=== PATIENT | male | born 1990 | race Caucasian/White ===

== ENCOUNTER 2017-11-08 09:05 | Emergency (ER) | payer SELFPAY ==
--- NOTE | 2017-11-08 10:21 | ED ---
Throat Pain/Nasal Congestion - HPI Summary HPI Summary: 27 now presents ED with complaints of right lower dental pain ongoing for the past couple weeks, however has been getting worse over the past few days. States he just doesn't feel good. Pain radiating into her right jaw. Denies any known fever chills. Has been taking someone else's Augmentin for the past 4 days along with Tylenol without relief. Just got dental insurance and plans on making an appointment. Denies any discharge or drainage. Denies any trouble breathing or swallowing. No obvious swelling or redness. Does have a fractured tooth and multiple dental caries. No other complaints and no past medical history. - History of Current Complaint Chief Complaint: EDDentalPain Time Seen by Provider: 11/08/17 09:46 Hx Obtained From: Patient Onset/Duration: Sudden Onset, Lasting Weeks, Still Present, Worse Since Severity: Moderate Associated Signs And Symptoms: Positive: Negative Cough: None - Allergies/Home Medications Allergies/Adverse Reactions: Allergies Allergy/AdvReac Type Severity Reaction Status Date / Time CODEINE Allergy Intermediate Difficulty Uncoded 11/08/17 09:30 Breathing Home Medications: Home Medications Amoxicillin PO (*) [Amoxicillin 500 MG CAP*] 500 mg PO BID 11/08/17 [History Confirmed 11/08/17] PMH/Surg Hx/FS Hx/Imm Hx Endocrine/Hematology History: Denies: Hx Anticoagulant Therapy, Hx Diabetes Cardiovascular History: Denies: Hx Hypertension Respiratory History: Denies: Hx Asthma - Surgical History Surgery Procedure, Year, and Place: n/a - Immunization History Immunizations Up to Date: Yes Infectious Disease History: No Infectious Disease History: Denies: Traveled Outside the [place] in Last 30 Days - Family History Known Family History: Positive: None - Social History Alcohol Use: None Substance Use Type: Reports: Marijuana Substance Use Comment - Amount & Last Used: 1 bowl daily Smoking Status (MU): Heavy Every Day Tobacco Smoker Review of Systems Constitutional: Negative Eyes: Negative Positive: Dental Pain Cardiovascular: Negative Respiratory: Negative Skin: Negative Positive: Headache All Other Systems Reviewed And Are Negative: Yes Physical Exam Triage Information Reviewed: Yes Vital Signs On Initial Exam: Initial Vitals Temp Pulse Resp BP Pulse Ox 98.2 F 70 16 149/82 97 11/08/17 09:39 11/08/17 09:39 11/08/17 09:39 11/08/17 09:39 11/08/17 09:39 Vital Signs Reviewed: Yes Appearance: Positive: Well-Appearing, Well-Nourished, Pain Distress - Mild Skin: Positive: Warm, Skin Color Reflects Adequate Perfusion, Dry, Other - No swelling or erythema appreciated. Negative: Cold, Numb, Cyanosis @, Erythema @ Head/Face: Positive: Normal Head/Face Inspection Eyes: Positive: Normal, EOMI, NAE, Conjunctiva Clear ENT: Positive: Hearing grossly normal, Pharynx normal, TMs normal, Uvula midline. Negative: Pharyngeal erythema, Tonsillar swelling, Tonsillar exudate, Sinus tenderness Dental: Positive: Gross Decay/Caries @, Dental Fracture @ - Right lower tooth # 1 and 2, Cervical Lymphadenopathy - Posterior cervical. Negative: Abscess @ - Not visualize Neck: Positive: Supple, Enlarged Nodes @ - Posterior cervical Respiratory/Lung Sounds: Positive: Clear to Auscultation, Breath Sounds Present. Negative: Rales, Rhonchi, Wheezes Cardiovascular: Positive: Normal, RRR, Pulses are Symmetrical in both Upper and Lower Extremities. Negative: Murmur, Rub Abdomen Description: Positive: Nontender, Soft Bowel Sounds: Positive: Present Musculoskeletal: Positive: Normal, Strength/ROM Intact Neurological: Positive: Normal, Sensory/Motor Intact, Alert, Oriented to Person Place, Time Diagnostics - Vital Signs Vital Signs Temp Pulse Resp BP Pulse Ox 11/08/17 09:39 98.2 F 70 16 149/82 97 - Laboratory Lab Statement: Any lab studies that have been ordered have been reviewed, and results considered in the medical decision making process. EENT Course/Dx - Course Course Of Treatment: Appears to be suffering from a dental infection. Will treat with naproxen and clindamycin. Discontinue taking another medication. Can supplement with Tylenol. Continue oral anesthetics and saltwater swishes. Good oral hygiene. Recommended probiotics and returning antibiotic doses. Increase fluid intake. Follow-up with oral surgeon/dentist appointment. Aware worsening signs and symptoms watch out for. No other complaints or concerns. Normal vitals and physical exam otherwise. - Differential Diagnoses Differential Diagnoses: Dental Abscess, Dental Caries, Fractured Tooth - Diagnoses Provider Diagnoses: Pain, dental, Dental infection Discharge - Sign-Out/Discharge Documenting (check all that apply): Discharge - Discharge Plan Condition: Good Disposition: HOME Prescriptions: Clindamycin Cap(NF) [Clindamycin Cap 300 mg Cap(NF)] 300 mg PO TID #30 cap Naproxen TAB* [Naprosyn 375 mg TAB*] 375 mg PO BID #15 tab Forms: *Work Release Referrals: Non Staff,Doctor [Primary Care Provider] - Wily Gonzalez MD [Doctor of Dental Medicine] - Hunter Bedolla MD [Doctor of Dental Medicine] - Additional Instructions: Take prescribed medication as directed. Take probiotics or E creaky odorimetry antibiotic doses to replenish normal jorje. Take naproxen for pain/inflammation with food only as needed. Salt water swishes and good oral hygiene. Warm compresses oversight help soothe pain. Continue oral anesthetic as needed. Increase fluid intake. Follow-up with a dentist/oral surgery within 1 week. Any new or worsening symptoms please seek medical attention promptly. - Billing Disposition and Condition Condition: GOOD Disposition: HOME
[2017-11-08] MEDS ORDERED: Ondansetron ODT TAB* 4 MG PO ONE (10:28)
[2017-11-08] MEDS ORDERED: Naproxen TAB* 250 MG PO ONE (10:28)
[2017-11-08 10:47] VITALS: BP 125/75
== END 2017-11-08 10:45 | disposition home or self-care (01) ==
LOC: ED 09:05
DX: K04.7 Periapical abscess without sinus (principal); Z88.5 Allergy status to narcotic agent; F17.210 Nicotine dependence, cigarettes, uncomplicated
CPT/HCPCS: 99282; A9270-GY